=== PATIENT | female | born 1995 | race Hispanic/Latino ===

== ENCOUNTER 2023-11-26 16:51 | Emergency (ER) | payer OTHER, BC ==
[~2023-11-26] VITALS: Ht 142.2 cm; Wt 63.5 kg
[2023-11-26] MEDS: ibuPROFEN 600 MG TABLET PO ONE (17:36)
[2023-11-26] MEDS: HYDROcodone/APAP 5/325 1 TAB TABLET PO ONE (17:36)
[2023-11-26 18:23] VITALS: BP 135/78; PULSE 88; RESP 16; TEMP 98.6; O2SAT 100
== END 2023-11-26 18:27 | disposition home or self-care (01) ==
LOC: EDH 16:51
DX: S09.90XA Unspecified injury of head, initial encounter (principal); R10.30 Lower abdominal pain, unspecified; E78.00 Pure hypercholesterolemia, unspecified; F41.9 Anxiety disorder, unspecified; E66.9 Obesity, unspecified; Z98.890 Other specified postprocedural states; Z68.30 Body mass index [BMI] 30.0-30.9, adult; V59.49XA Driver of pick-up truck or van injured in collision with other motor vehicles in traffic accident, initial encounter; Y93.I9 Activity, other involving external motion; Y92.488 Other paved roadways as the place of occurrence of the external cause; Y99.8 Other external cause status
CPT/HCPCS: 70450; 74176; 81025

== ENCOUNTER → 2024-06-29 | Outpatient (CLI) | payer BC ==
--- NOTE | 2024-06-29 15:41 | HMCIMG ---
US SOFT TISSUE NECK REASON: R59.0. COMPARISON: None TECHNIQUE: Right neck ultrasound study was performed. FINDINGS: Over the region of interest in the right submandibular area, there is a lymph node measuring 18 x 5 x 15 mm. Right-sided PICC line measures 3.3 x 1.5 x 3.2 cm. IMPRESSION: There is some anterior lymph node measuring 18 x 5 x 15 mm.
== END | disposition home or self-care (01) ==
LOC: RAH 15:10
PROVIDERS: ATTEND Family Medicine
DX: R59.0 Localized enlarged lymph nodes (principal)
CPT/HCPCS: 76536

== ENCOUNTER → 2024-08-31 | Outpatient (CLI) | payer BC ==
--- NOTE | 2024-08-31 17:40 | HMCSR ---
APPROVED REPORT EXAM: Two-dimensional and M-mode echocardiogram with Doppler and color Doppler. INDICATION ICD: r00.2 Palpitations 2D Dimensions RVDd3.3 cmLVEF(%)49.0 (>50%)LVED Vol(simp.)108.0 mL IVSd0.7 (0.7-1.1cm)FS(%)25 %LVES Vol(simp.)50.0 mL LVDd4.7 (3.8-5.6cm)LA (2D)3.8 (1.6-4.0cm)LVEF(%, simp.)54 % PWd0.7 (0.7-1.1cm)Ao Root(2D)2.5 (2.0-3.7cm)LA ESV INDEX (BP)32.04 mL/m2 IVSs0.8 cmLVOT diam2.1 (1.8-2.4cm) LVDs3.5 (2.5-4.0cm)IVC diam1.0 cm PWs1.2 cm M-Mode Dimensions EPSS0.6 cm LA (MM)3.9 (1.6-4.0cm) Ao Root(MM)2.3 (2.0-3.7cm) Aortic Valve AoV Vmax1.3 m/Demi Peak GR6.9 mmHgLVOT Vmax0.9 m/s AoV VTI0.2 mAo Mean GR3.8 mmHgLVOT VTI0.18 m ANILA (VMAX)2.36 cm2AVA (VTI) 2.5 cm2 Mitral Valve MV E Vmax75.0 cm/sDECEL Gpvb097 ms MV A Vmax50.0 cm/sP 1/2 T43 ms E/A ratio1.5MVA (PHT)5.2 cm2 TDI E/E' Medial9.9E/E' Lateral5.4 Medial E' Peak V7.60 cm/sLateral E' Peak V13.87 cm/s Pulmonary Valve PV Vmax0.9 m/sPV VTI0.21 mPV Mean GR2.2 mmHg PV Peak GR3.5 mmHgPI End Beverly. Bayron 68.8 cm/s Left Ventricle The left ventricle is normal size. No regional wall motion abnormalities noted. There is normal left ventricular wall thickness. LVEF is 50-55%. The left ventricular diastolic function is normal. Right Ventricle The right ventricle is normal size. The right ventricular systolic function is normal. Atria The left atrium size is normal. The right atrium size is normal. Aortic Valve The aortic valve is normal in structure. No aortic regurgitation is present. There is no aortic valvu lar stenosis. Mitral Valve The mitral valve is normal in structure. There is no mitral valve regurgitation noted. There is no mi tral valve stenosis. Tricuspid Valve The tricuspid valve is normal in structure. There is no tricuspid valve regurgitation noted. Pulmonic Valve The pulmonary valve is normal in structure. There is trace pulmonic valvular regurgitation. Great Vessels The aortic root is normal in size. The IVC is normal in size and collapses >50% with inspiration. Pericardium There is no pericardial effusion. Conclusion LVEF is 50-55%. No regional wall motion abnormalities noted. The right ventricular systolic function is normal. No aortic regurgitation is present. There is no mitral valve regurgitation noted. The aortic root is normal in size. There is no pericardial effusion.
== END | disposition home or self-care (01) ==
LOC: RAH 13:21
PROVIDERS: ATTEND Family Medicine
DX: R00.2 Palpitations (principal); R94.31 Abnormal electrocardiogram [ECG] [EKG]
CPT/HCPCS: 93306